=== PATIENT | male | born 1955 | race Caucasian/White ===

== ENCOUNTER → 2024-12-08 16:39 | Outpatient (REF) | payer MEDICARE, OTHER, SELFPAY | LOC: RAD 16:39 | PROVIDERS: ATTENDING PHYSICIAN Nurse Practitioner Family; FAMILY PHYSICIAN Family Medicine | DX: L08.9 Local infection of the skin and subcutaneous tissue, unspecified (principal) | CPT/HCPCS: 73630 ==